=== PATIENT | female | born 1985 | race American Indian/Alaskan Native ===

== ENCOUNTER 2020-09-11 23:14 | Inpatient (IN) | payer MEDICAID ==
[2020-09-11] MEDS ORDERED: LACTATED RINGERS 1,000 ML IV ONE (23:51)
[2020-09-12] MEDS ORDERED: ePHEDrine SULFATE 50 MG/1 ML INJ IV PRN ×2 (00:12→02:39)
[2020-09-12] MEDS ORDERED: TERBUTALINE 1 MG/1 ML INJ SUB-Q PRN (00:12)
[2020-09-12] MEDS ORDERED: fentaNYL 100 MCG/2 ML INJ IV PRN (00:12)
[2020-09-12] MEDS ORDERED: MINERAL OIL 30 ML ORAL LIQD ONE (00:20)
[2020-09-12] MEDS ORDERED: OXYTOCIN DRIP 30,000 MILLIUNITS/500 ML BAG IV ONE (00:20)
--- NOTE | 2020-09-12 00:24 | History and Physical Report ---
History of Present Illness Date of examination: 09/12/20 Date of admission: 09/12/20 Chief complaint: Contractions/labor. History of present illness: 35 year old female presents to L&D in active labor. Patient received care at [facility] but records are not available. Patient states her EDC is 10/08/20. Problems during : chronic hypertension (on Labetalol), class 3 obesity, asthma, GBS unknown. labs to be requested from [facility] office when they open tomorrow morning. Past History Past Medical History: asthma, hypertension, other (obesity) Past Surgical History: no surgical history [facility] History: denies: chlamydia, gonorrhea, hepatitis B, hepatitis C, herpes, HIV, syphilis, trichomonas Family/Genetic History: hypertension Social history: lives with family, full code. denies: smoking, alcohol abuse, prescription drug abuse, IV drug use - Obstetrical History Expected Date of Delivery: 10/08/20 Actual Gestation: 36 Week(s) 2 Day(s) : 7 Para: 6 Hx # Term Pregnancies: 6 Number of Pregnancies: 0 Spontaneous Abortions: 0 Induced : 0 Number of Living Children: 6 Medications and Allergies Allergies Allergy/AdvReac Type Severity Reaction Status Date / Time Penicillins Allergy Anaphylaxis Verified 09/11/20 23:51 Active Meds: Active Medications Ephedrine Sulfate (Ephedrine Sulfate 50 Mg/1 Ml Inj) 10 mg IV Q2M PRN PRN Reason: Hypotension Fentanyl (Fentanyl 100 Mcg/2 Ml Inj) 100 mcg IV Q2H PRN PRN Reason: Pain,Severe (7-10) LABOR PAIN Lactated Ringer's (Lactated Ringers) 1,000 mls @ 999 mls/hr IV BOLUS ONE Stop: 09/12/20 00:51 Lactated Ringer's (Lactated Ringers) 1,000 mls @ 125 mls/hr IV DIRECT QUYEN Oxytocin/Sodium Chloride (Pitocin/Ns 30 Unit/500ml) 30 units in 500 mls @ 40 mls/hr IV TITR QUYEN; Protocol Vancomycin HCl (Vancomycin/Ns 1 Gm/250 Ml) 1 gm in 250 mls @ 167.007 mls/hr IV Q12H QUYEN; Protocol Lidocaine (Lidocaine (2%) 20 Mg/1 Ml Vial 20 Ml Mdv) 20 ml INFILTRATI ONCE ONE Stop: 09/12/20 00:13 Terbutaline Sulfate (Terbutaline 1 Mg/1 Ml Inj) 0.25 mg SUB-Q ONCE PRN PRN Reason: Hyperstimulation/Hypertonicity Review of Systems All systems: negative (contractions, had headache prior to arrival) - Vital Signs Vital signs: Vital Signs Pulse BP Pulse Ox 80 139/80 100 09/11/20 23:36 09/11/20 23:36 09/11/20 23:36 Temp Pulse Resp BP Pulse Ox 98.2 F 98 H 18 139/80 98 09/11/20 23:37 09/12/20 00:11 09/11/20 23:37 09/11/20 23:37 09/12/20 00:11 - Physical Exam Abdomen: Positive: normal appearance, soft. Negative: distention, tenderness, guarding, rigidity Genitourinary (Female): Positive: normal external genitalia, normal perenium. Negative: perineal/vulvar lesions Vagina: Positive: normal moisture Uterus: Positive: enlarged. Negative: tender Anus/Rectum: Positive: normal perianal skin Extremities: Positive: edema - Obstetrical FHR: category 1 Cervical Dilatation: 6 (small amount of bloody show noted; no active bleeding seen) Cervical Effacement Percentage: 80 station: -1 Uterine Contraction Pattern: Regular Uterine Contraction Intensity: Moderate Results All other labs normal. Assessment and Plan A: at 36 weeks, 2 days gestation. Active labor. Chronic hypertension with superimposed preeclampsia with severe features. GBS unknown. Grand mutipara. Asthma. Class 3 obesity. No records available. PCN allergy. P: Admit. EFM. Labetalol 200 mg PO for BP control. Hydralazine IV as needed for severe range BPs. Magnesium Sulfate for seizure prevention. GBS prophylaxis. Augmentation of labor to expedite . Anticipate vaginal . Consulted with Dr. Fournier re: this patient due to severe preeclampsia; will be co- managed with MD due to severe preeclampsia.
[2020-09-12] MEDS ORDERED: BETAMET ACET/BETAMET NA PH 6 MG/ML INJ 5 ML MDV IM SCH (00:25)
[2020-09-12] MEDS ORDERED: LIDOCAINE (2%) 20 MG/1 ML VIAL 20 ML MDV INFILTRATI ONE (00:42)
[2020-09-12] MEDS ORDERED: hydrALAZINE 20 MG/1 ML INJ IV PRN ×2 (00:45→04:26)
[2020-09-12] MEDS ORDERED: VANCOMYCIN/NS 1 GM/250 ML 1 GM/250 ML BAG IV SCH (01:00)
[2020-09-12] MEDS ORDERED: OXYTOCIN DRIP 30 UNITS/500 ML BAG IV SCH ×2 (01:00→02:00)
[2020-09-12] MEDS ORDERED: MAGNESIUM SULFATE 4 GM/100 ML BAG IV ONE (01:24)
[2020-09-12 01:41] LABS: Hematocrit 34.3 % (30.3-42.9); Hemoglobin 11.7 gm/dl (10.1-14.3); Mean Corpuscular HGB Conc 34 % (30-34); Mean Corpuscular Volume 93 fl (79-97); Platelet Count 263 K/mm3 (140-440); Red Cell Distribution Width 12.3 % (13.2-15.2)
[2020-09-12] MEDS ORDERED: hydrALAZINE 20 MG/1 ML INJ IV ONE (01:44)
[2020-09-12 01:56] LABS: Alanine Aminotransferase 6 units/L (7-56); Albumin 3.3 g/dL (3.9-5); Blood Urea Nitrogen 10 mg/dL (7-17); Calcium 8.7 mg/dL (8.4-10.2); Hemolysis Index 30
[2020-09-12] MEDS: MAGNESIUM SULFATE 40GM/1000ML 40 GM/1,000 ML BAG IV SCH ×2 (02:00→20:11)
[2020-09-12 02:11] LABS: BUN/Creatinine Ratio 20
--- NOTE | 2020-09-12 02:28 | Event Note ---
Date: 09/12/20 Patient has received IV Labetalol x2 and IV Hydralazine. BPs still significantly elevated. Called Dr. Fournier and informed him of elevated blood pressures despite interventions. Patient is awaiting epidural. Magnesium sulfate 2 gram/hour continues.
[2020-09-12] MEDS ORDERED: NALOXONE 2 MG/2 ML INJ IV PRN (02:39)
--- NOTE | 2020-09-12 02:39 | Anesthesia Consultation ---
Anesthesia Consult and Med Hx Date of service: 09/12/20 - Airway Anesthetic Teeth Evaluation: Poor ROM Head & Neck: Adequate Mental/Hyoid Distance: Adequate Mallampati Class: Class III Intubation Access Assessment: Possibly Difficult - Pulmonary Exam CTA: Yes - Cardiac Exam Cardiac Exam: RRR - Pre-Operative Health Status ASA Pre-Surgery Classification: ASA3 - Pulmonary Hx Smoking: No Hx Asthma: Yes (last attrack > 10 years) Hx Respiratory Symptoms: No SOB: No COPD: No Home Oxygen Therapy: No Hx Pneumonia: No Hx Sleep Apnea: No - Cardiovascular System Hx Hypertension: Yes (2019 & current) Hx Coronary Artery Disease: No Hx Heart Attack/AMI: No Hx Angina: No Hx Percutaneous Transluminal Coronary Angioplasty (PTCA): No Hx Cardia Arrhythmia: No Hx Pacemaker: No Hx Internal Defibrillator: No Hx Valvular Heart Disease: No Hx Heart Murmur: No Hx Peripheral Vascular Disease: No - Central Nervous System Hx Neuromuscular Disorder: No Hx Seizures: No CVA: No Hx Back Pain: No Hx Psychiatric Problems: No - Gastrointestinal Hx Ulcer: No Hx Gastroesophageal Reflux Disease: Yes - Endocrine Hx Renal Disease: No Hx End Stage Renal Disease: No Hx Cirrhosis: No Hx Liver Disease: No Hx Insulin Dependent Diabetes: No Hx Non-Insulin Dependent Diabetes: No Hx Thyroid Disease: No Hx Hypothyroidism: No Hx Hyperthyroidism: No - Hematic Hx Anemia: No Hx Sickle Cell Disease: No - Other Systems Hx Alcohol Use: No Hx Substance Use: No Hx Cancer: No Hx Obesity: Yes
--- NOTE | 2020-09-12 02:39 | Progress Note ---
Labor Epidural - Labor Epidural Start Time: 03:00 Stop Time: 03:00 Performed by:: BENIGNO MCKEON Procedure: Patient is requesting a laboring epidural for laboring pain. Patient IDed, H&P reviewed, all questions and concerns were answered, and consent was signed. CNM in the room for vaginal exam. Patient is compleat and prefer not to have an epidural at this time
[2020-09-12] MEDS ORDERED: fentaNYL-BUPIV 2 MCG/ML-0.125% 200 MCG/100 ML BAG EPIDURAL SCH (03:00)
[2020-09-12 03:32] LABS: Bacteria,Urine 1+ /HPF (Negative); Bilirubin,Urine NEG (Negative); Blood,Urine MOD (Negative); Color,Urine Yellow (Yellow); Mucus,Urine 1+ /HPF; Protein,Urine <15 mg/dL mg/dL (Negative); Urobilinogen,Urine < 2.0 mg/dL (<2.0)
[2020-09-12] MEDS ORDERED: LANOLIN/ZINC/DIMETHICONE (LANSINOH) 7 GM TP PRN (03:43)
[2020-09-12] MEDS ORDERED: WITCH HAZEL/ GLYCERIN PAD TP PRN (03:43)
[2020-09-12] MEDS ORDERED: HYDROcodone/ACETAMINOPHEN 5-325 MG TAB PO PRN (03:53)
--- NOTE | 2020-09-12 04:12 | Procedure Note ---
OB Delivery Note - Delivery Date of Delivery: 09/12/20 Surgeon: JENIFFER VILLAFUERTE Estimated blood loss: 200cc - Vaginal Delivery presentation: vertex Delivery position: OA Delivery induction: none Delivery monitor: external FHT, external uterine Route of delivery: Delivery placenta: spontaneous Delivery cord: 3 umbilical vessels Episiotomy: none Delivery laceration: none - Section Narrative: Spontaneous vaginal delivery at 02:56 of liveborn male weighing 5 lbs. 12 oz. over intact perineum with apars of 2/8. was atraumatic. Tight nuchal cord times 1, double clamped and cut . Baby taken to radiant warmer for suctioning and stimulation. Spontaneous cry and respirations. Sponaneous delivery of intact placenta and membranes. Pitocin to IV fluids after delivery of placenta. EBL 200 cc. Fundus firm and midline. No lacerations noted. Vaginal sweep negative. Mother and baby stable.
[2020-09-12] MEDS: ACETAMINOPHEN 325 MG TAB PO PRN ×2 (04:15→20:11)
--- NOTE | 2020-09-12 04:45 | Event Note ---
Date: 09/12/20 Dr. Fournier came and saw patient and states he agrees with medications patient is receiving. Patient is receiving Labetalol 300 mg po BID. She also has received IV hydralazine and Labetalol. BPs came down a little just after delivery but now going back up again. Hospitalist consult has been ordered. Called and spoke with hospitalist and explained the situation and he states he will come to see patient.
[2020-09-12] MEDS: LACTATED RINGERS 1,000 ML IV SCH ×2 (05:46→18:55)
--- NOTE | 2020-09-12 08:49 | Consultation ---
History of Present Illness - Reason for Consult Consult date: 09/12/20 - History of Present Illness 35 year old female with a medical hisgtory of HTN, Asthma who presented to the hospital in labor. She takes hydralazine usually. Her BP reportedly controlled during . Here her BP was elevated and it did not respond appropriately to IV medications. Hospitalist priya was consulted for uncontrolled HTN Patient seen this AM. Complains of headache. Denies chest pain or palpitations. Past History Past Medical History: hypertension, other (Asthma) Social history: lives with family, full code. denies: smoking, alcohol abuse, prescription drug abuse, IV drug use Medications and Allergies Allergies Allergy/AdvReac Type Severity Reaction Status Date / Time Penicillins Allergy Anaphylaxis Verified 09/11/20 23:51 Active Meds: Active Medications Acetaminophen (Acetaminophen 325 Mg Tab) 650 mg PO Q4H PRN PRN Reason: Pain MILD(1-3)/Fever >100.5/FOY Last Admin: 09/12/20 04:15 Dose: 650 mg Documented by: Hydrocodone Bitart/Acetaminophen (Hydrocodone/Acetaminophen 5-325 Mg Tab) 1 each PO Q6H PRN PRN Reason: Pain, Moderate (4-6) Betamethasone Acet/Betameth SodPhos (Betamet Acet/Betamet Na Ph 6 Mg/Ml Inj 5 Ml Mdv) 12 mg IM Q24H QUYEN Stop: 09/13/20 00:26 Ephedrine Sulfate (Ephedrine Sulfate 50 Mg/1 Ml Inj) 10 mg IV Q2M PRN PRN Reason: Hypotension Fentanyl (Fentanyl 100 Mcg/2 Ml Inj) 100 mcg IV Q2H PRN PRN Reason: Pain,Severe (7-10) LABOR PAIN Last Admin: 09/12/20 04:52 Dose: 100 mcg Documented by: Hydralazine HCl (Hydralazine 20 Mg/1 Ml Inj) 5 mg IV Q30MIN PRN PRN Reason: Hypertension Last Admin: 09/12/20 01:08 Dose: 5 mg Documented by: Hydralazine HCl (Hydralazine 20 Mg/1 Ml Inj) 10 mg IV Q30MIN PRN PRN Reason: Hypertension Last Admin: 09/12/20 04:33 Dose: 10 mg Documented by: Lactated Ringer's (Lactated Ringers) 1,000 mls @ 125 mls/hr IV DIRECT QUYEN Last Admin: 09/12/20 05:46 Dose: 75 mls/hr Documented by: Oxytocin/Sodium Chloride (Pitocin/Ns 30 Unit/500ml) 30 units in 500 mls @ 40 mls/hr IV TITR QUYEN; Protocol Vancomycin HCl (Vancomycin/Ns 1 Gm/250 Ml) 1 gm in 250 mls @ 167.007 mls/hr IV Q12H QUYEN; Protocol Last Admin: 09/12/20 01:20 Dose: 167.007 mls/hr Documented by: Magnesium Sulfate (Magnesium Sulfate 40gm/1000ml) 40 gm in 1,000 mls @ 50 mls/hr IV DIRECT QUYEN Last Admin: 09/12/20 02:00 Dose: 2 gm/hr, 50 mls/hr Documented by: Oxytocin/Sodium Chloride (Pitocin/Ns 30 Unit/500ml) 30 units in 500 mls @ 2 mls/hr IV TITR QUYEN; Protocol Fentanyl/Bupivacaine/Sodium Chlor (Fentanyl-Bupiv 2 Mcg/Ml-0.125%) 200 mcg in 100 mls @ 12 mls/hr EPIDURAL TITR QUYEN; Protocol Labetalol HCl (Labetalol 200 Mg Tab) 200 mg PO BID QUYEN Last Admin: 09/12/20 04:05 Dose: 200 mg Documented by: Multi-Ingredient Ointment (Lanolin/Zinc/Dimethicone (Lansinoh) 7 Gm) 1 applic TP PRN PRN PRN Reason: Sore Nipples Naloxone HCl (Naloxone 2 Mg/2 Ml Inj) 0.2 mg IV Q5M PRN PRN Reason: Respiratory sedation Sodium Chloride (Sodium Chloride 0.9% 10 Ml Flush Syringe) 10 ml IV PRN NR Stop: 09/13/20 03:59 Terbutaline Sulfate (Terbutaline 1 Mg/1 Ml Inj) 0.25 mg SUB-Q ONCE PRN PRN Reason: Hyperstimulation/Hypertonicity Witch Alba/Glycerin (Witch Alba/ Glycerin Pad) 1 each TP PRN PRN PRN Reason: Hemorrhoid/cleansing/soothing Exam - Physical Exam Narrative exam: VITAL SIGNS: Reviewed. GENERAL: Awake HEAD: No signs of head trauma. EYES: Pupils are equal. Extraocular motions intact. MOUTH: Oropharynx is normal. NECK: No adenopathy, no JVD. CHEST: Chest with diminished breath sounds bilaterally. No wheezes, rales, or rhonchi. CARDIAC: normal S1 and S2, without murmurs, gallops, or rubs. ABDOMEN: Soft, non tender and non distended. No rebound or guarding, and no masses palpated. Bowel Sounds normal. MUSCULOSKELETAL: No edema NEUROLOGIC EXAM: Alert and oriented x3. No focal neurologic deficits SKIN: No obvious lesions - Constitutional Vitals: Temp Pulse Resp BP Pulse Ox 97.8 F 72 18 129/73 98 09/12/20 06:00 09/12/20 08:46 09/12/20 04:52 09/12/20 08:38 09/12/20 08:46 Results - Labs CBC & Chem 7: 09/12/20 00:55 09/12/20 00:55 Labs: Abnormal lab results 09/12/20 09/12/20 09/12/20 Range/Units 00:55 00:55 00:55 WBC 12.7 H (4.5-11.0) K/mm3 RDW 12.3 L (13.2-15.2) % Sodium 134 L (137-145) mmol/L Carbon Dioxide 21 L (22-30) mmol/L Creatinine 0.5 L (0.6-1.2) mg/dL ALT 6 L (7-56) units/L Lactate Dehydrogenase 240 H (91-180) units/L Albumin 3.3 L (3.9-5) g/dL Assessment and Plan #Uncontrolled hypertension Continue labetalol 200 mg twice daily Add hydralazine 25 mg every 8 hours Monitor blood pressure closely #Asthma Continue bronmchodilators Thank you for the consult
[2020-09-12] MEDS ORDERED: hydrALAZINE 25 MG TAB PO SCH (10:00)
[2020-09-12] MEDS: hydrALAZINE 25 MG TAB PO SCH ×2 (14:47→22:14)
[2020-09-12 15:00] LABS: Hematocrit 31.6 % (30.3-42.9); Hemoglobin 10.4 gm/dl (10.1-14.3)
[2020-09-13] MEDS: ACETAMINOPHEN 325 MG TAB PO PRN ×2 (04:41→22:30)
[2020-09-13] MEDS: hydrALAZINE 25 MG TAB PO SCH ×4 (05:59→22:34)
[2020-09-13] MEDS ORDERED: ALBUTEROL 2.5 MG/3 ML NEBU IH ONE (08:18)
[2020-09-13] MEDS ORDERED: ALBUTEROL 2.5 MG/3 ML NEBU IH PRN (08:26)
--- NOTE | 2020-09-13 08:27 | Progress Note ---
Assessment and Plan Assessment and plan: #Uncontrolled hypertension Labetalol 400mg BID Hydralazine 25 mg q8hr Nifedipine 60mg q12hr Monitor blood pressure closely #Mild asthma exacerbation Prednisone 40mg x5days Continue bronchodilators Pulmonology follow up at discharge Thank you for the consult History Interval history: Patient seen and examined at bedside. Has some wheezing. Hospitalist Physical - Physical exam Narrative exam: VITAL SIGNS: Reviewed. GENERAL: Awake HEAD: No signs of head trauma. EYES: Pupils are equal. Extraocular motions intact. MOUTH: Oropharynx is normal. NECK: No adenopathy, no JVD. CHEST: Slight wheezes CARDIAC: normal S1 and S2, without murmurs, gallops, or rubs. ABDOMEN: Soft, non tender and non distended. No rebound or guarding, and no masses palpated. Bowel Sounds normal. MUSCULOSKELETAL: No edema NEUROLOGIC EXAM: Alert and oriented x3. No focal neurologic deficits SKIN: No obvious lesions - Constitutional Vitals: Temp Pulse Resp BP Pulse Ox 98.4 F 76 18 165/96 100 09/13/20 04:24 09/13/20 05:59 09/13/20 05:41 09/13/20 05:59 09/13/20 04:24 Results - Labs CBC & Chem 7: 09/12/20 14:21 09/12/20 00:55 Labs: Laboratory Last Values WBC 12.7 K/mm3 (4.5-11.0) H 09/12/20 00:55 RBC 3.70 M/mm3 (3.65-5.03) 09/12/20 00:55 Hgb 10.4 gm/dl (10.1-14.3) 09/12/20 14:21 Hct 31.6 % (30.3-42.9) 09/12/20 14:21 MCV 93 fl (79-97) 09/12/20 00:55 MCH 32 pg (28-32) 09/12/20 00:55 MCHC 34 % (30-34) 09/12/20 00:55 RDW 12.3 % (13.2-15.2) L 09/12/20 00:55 Plt Count 263 K/mm3 (140-440) 09/12/20 00:55 Sodium 134 mmol/L (137-145) L 09/12/20 00:55 Potassium 4.0 mmol/L (3.6-5.0) 09/12/20 00:55 Chloride 101.6 mmol/L (98-107) 09/12/20 00:55 Carbon Dioxide 21 mmol/L (22-30) L 09/12/20 00:55 Anion Gap 15 mmol/L 09/12/20 00:55 BUN 10 mg/dL (7-17) 09/12/20 00:55 Creatinine 0.5 mg/dL (0.6-1.2) L 09/12/20 00:55 Estimated GFR > 60 ml/min 09/12/20 00:55 BUN/Creatinine Ratio 20 % 09/12/20 00:55 Glucose 97 mg/dL (65-100) 09/12/20 00:55 Uric Acid 3.5 mg/dL (3.5-7.6) 09/12/20 00:55 Calcium 8.7 mg/dL (8.4-10.2) 09/12/20 00:55 Magnesium 4.50 mg/dL (1.7-2.3) H 09/13/20 00:37 Total Bilirubin < 0.20 mg/dL (0.1-1.2) 09/12/20 00:55 AST 18 units/L (5-40) 09/12/20 00:55 ALT 6 units/L (7-56) L 09/12/20 00:55 Alkaline Phosphatase 107 units/L (35-129) 09/12/20 00:55 Lactate Dehydrogenase 240 units/L (91-180) H 09/12/20 00:55 Total Protein 6.5 g/dL (6.3-8.2) 09/12/20 00:55 Albumin 3.3 g/dL (3.9-5) L 09/12/20 00:55 Albumin/Globulin Ratio 1.0 % 09/12/20 00:55 Urine Color Yellow (Yellow) 09/12/20 01:38 Urine Turbidity Clear (Clear) 09/12/20 01:38 Urine pH 6.0 (5.0-7.0) 09/12/20 01:38 Ur Specific [place] 1.020 (1.003-1.030) 09/12/20 01:38 Urine Protein <15 mg/dl mg/dL (Negative) 09/12/20 01:38 Urine Glucose (UA) Neg mg/dL (Negative) 09/12/20 01:38 Urine Ketones Neg mg/dL (Negative) 09/12/20 01:38 Urine Blood Mod (Negative) 09/12/20 01:38 Urine Nitrite Neg (Negative) 09/12/20 01:38 Urine Bilirubin Neg (Negative) 09/12/20 01:38 Urine Urobilinogen < 2.0 mg/dL (<2.0) 09/12/20 01:38 Ur Leukocyte Esterase Neg (Negative) 09/12/20 01:38 Urine WBC (Auto) 2.0 /HPF (0.0-6.0) 09/12/20 01:38 Urine RBC (Auto) 3.0 /HPF (0.0-6.0) 09/12/20 01:38 U Epithel Cells (Auto) 2.0 /HPF (0-13.0) 09/12/20 01:38 Urine Bacteria (Auto) 1+ /HPF (Negative) 09/12/20 01:38 Urine Mucus 1+ /HPF 09/12/20 01:38 Blood Type B POSITIVE 09/12/20 00:55 Antibody Screen Negative 09/12/20 00:55 Active Medications - Current Medications Current Medications: Generic Name Dose Route Start Last Admin Trade Name Freq PRN Reason Stop Dose Admin Acetaminophen 650 mg 09/12/20 03:43 09/13/20 04:41 Acetaminophen 325 Mg Tab PO 650 mg Q4H PRN Administration Pain MILD(1-3)/Fever >100.5/FOY Hydrocodone Bitart/Acetaminophen 1 each 09/12/20 03:53 Hydrocodone/Acetaminophen 5-325 Mg Tab PO Q6H PRN Pain, Moderate (4-6) Ephedrine Sulfate 10 mg 09/12/20 00:12 Ephedrine Sulfate 50 Mg/1 Ml Inj IV Q2M PRN Hypotension Fentanyl 100 mcg 09/12/20 00:12 09/12/20 04:52 Fentanyl 100 Mcg/2 Ml Inj IV 100 mcg Q2H PRN Administration Pain,Severe (7-10) LABOR PAIN Hydralazine HCl 5 mg 09/12/20 00:45 09/12/20 01:08 Hydralazine 20 Mg/1 Ml Inj IV 5 mg Q30MIN PRN Administration Hypertension Hydralazine HCl 10 mg 09/12/20 04:26 09/12/20 04:33 Hydralazine 20 Mg/1 Ml Inj IV 10 mg Q30MIN PRN Administration Hypertension Hydralazine HCl 25 mg 09/13/20 08:00 Hydralazine 25 Mg Tab PO Q8HR QUYEN Lactated Ringer's 1,000 mls @ 125 mls/hr 09/12/20 00:15 09/13/20 03:36 Lactated Ringers IV 0 mls/hr DIRECT QUYEN Infusion Oxytocin/Sodium Chloride 30 units in 500 mls @ 40 mls/hr 09/12/20 01:00 Pitocin/Ns 30 Unit/500ml IV TITR [facility] Protocol Magnesium Sulfate 40 gm in 1,000 mls @ 50 mls/hr 09/12/20 02:00 09/13/20 03:36 Magnesium Sulfate 40gm/1000ml IV 0 gm/hr DIRECT QUYEN 0 mls/hr Infusion 2 GM/HR Oxytocin/Sodium Chloride 30 units in 500 mls @ 2 mls/hr 09/12/20 02:00 Pitocin/Ns 30 Unit/500ml IV TITR [facility] Protocol Labetalol HCl 400 mg 09/13/20 08:00 Labetalol 200 Mg Tab PO BID [facility] Multi-Ingredient Ointment 1 applic 09/12/20 03:43 Lanolin/Zinc/Dimethicone (Lansinoh) 7 Gm TP PRN PRN Sore Nipples Naloxone HCl 0.2 mg 09/12/20 02:39 Naloxone 2 Mg/2 Ml Inj IV Q5M PRN Respiratory sedation Nifedipine 60 mg 09/13/20 08:00 Nifedipine Xl 60 Mg Tab PO Q12HR [facility] Witch Alba/Glycerin 1 each 09/12/20 03:43 Witch [place]/ Glycerin Pad TP PRN PRN Hemorrhoid/cleansing/soothing
[2020-09-13] MEDS ORDERED: NIFEdipine XL 60 MG TAB PO SCH (10:00)
--- NOTE | 2020-09-13 10:28 | Progress Note ---
Assessment and Plan A: day 1 S/P . Hypertension. Severe Preeclampsia. Asthma. Class 3 obesity. Anemia. P: Hospitalist is also following patient. Continue BP meds and asthma meds as ordered by hospitalist. Oral iron supplementation for anemia. Subjective - Subjective Date of service: 09/13/20 Principal diagnosis: day 1 S/P ; severe preeclampsia Interval history: Patient was seen by hospitalist yesterday and again this morning due to uncontrolled hypertension and asthma exacerbation. For hypertension, patient is currently on Labetalol 400 mg po BID, Procardia 60 mg po every 12 hours, and Hydralazine 25 mg po every 8 hours. For asthma, patient is currently receiving albuterol and prednisone. Patient denies headache, chest pain, cough, or leg pain. Patient reports moderate to light lochia. Patient reports: appetite normal, voiding normally, pain well controlled, no nauseated : doing well Objective - Vital Signs Latest vital signs: Vital Signs Temp Pulse Pulse Resp Resp BP Pulse Ox 09/13/20 08:26 97.1 F L 74 18 149/98 100 09/13/20 08:15 90 18 09/13/20 05:59 76 165/96 09/13/20 05:41 18 09/13/20 04:41 18 09/13/20 04:24 98.4 F 76 18 165/96 100 09/13/20 03:21 79 97 09/13/20 03:16 77 99 09/13/20 03:11 89 98 09/13/20 03:08 77 142/95 09/13/20 03:06 81 97 09/13/20 03:01 75 98 09/13/20 02:56 72 98 09/13/20 02:51 76 98 09/13/20 02:46 73 98 09/13/20 02:41 71 98 09/13/20 02:38 71 142/82 09/13/20 02:36 70 98 09/13/20 02:31 72 98 09/13/20 02:26 75 100 09/13/20 02:21 87 98 09/13/20 02:16 87 99 09/13/20 02:11 81 99 09/13/20 02:08 89 141/79 92 09/13/20 02:06 92 H 99 09/13/20 02:01 78 98 09/13/20 01:56 83 96 05 01:51 88 97 09/13/20 01:46 80 98 05 01:41 108 H 98 09/13/20 01:38 78 155/86 93 05 01:36 78 97 09/13/20 01:31 78 97 09/13/20 01:26 74 97 05 01:21 71 97 09/13/20 01:16 73 97 09/13/20 01:11 79 98 05 01:08 74 143/89 09/13/20 01:06 71 98 09/13/20 01:01 75 98 09/13/20 00:56 73 98 05 00:51 76 100 09/13/20 00:46 75 97 09/13/20 00:41 82 98 09/13/20 00:38 70 141/92 09/13/20 00:36 70 99 09/13/20 00:31 78 99 09/13/20 00:26 82 98 09/13/20 00:21 79 99 05 00:16 73 99 09/13/20 00:11 76 99 09/13/20 00:08 97.9 F 69 19 142/91 09/13/20 00:06 75 99 09/13/20 00:01 89 99 09/12/20 23:56 87 98 09/12/20 23:51 78 98 09/12/20 23:46 84 99 09/12/20 23:41 87 99 09/12/20 23:38 79 157/85 94 05 23:36 79 96 05 23:31 81 96 05 23:26 79 98 05 23:23 84 94 05 23:21 80 96 05 23:16 80 98 05 23:11 78 97 05 23:08 75 138/84 05 23:06 87 97 05 23:01 74 98 05 22:56 80 97 05 22:51 92 H 99 05 22:46 82 99 05 22:41 74 98 05 22:38 75 144/84 05 22:36 78 97 05 22:31 83 97 05 22:26 85 98 05 22:21 75 100 05 22:16 79 100 05 22:11 81 99 05 22:08 77 138/85 05 22:06 80 100 05 22:01 77 98 05 21:56 89 99 05 21:51 89 99 05 21:46 76 99 05 21:41 85 100 09/12/20 21:38 77 172/92 05 21:36 82 99 05 21:31 87 100 09/12/20 21:26 77 99 05 21:21 82 97 09/12/20 21:16 85 98 09/12/20 21:11 76 98 05 21:08 74 149/85 05 21:06 81 98 05 21:01 73 98 05 20:56 85 97 09/12/20 20:51 72 99 05 20:46 81 98 05 20:41 74 98 05 20:38 78 164/105 09/12/20 20:36 85 98 05 20:31 83 99 09/12/20 20:26 78 98 05 20:21 71 97 05 20:18 89 91 05 20:16 78 97 05 20:13 73 155/90 05 20:11 82 97 05 20:06 76 98 05 20:01 82 98 05 19:56 74 98 05 19:51 78 97 05 19:46 82 147/91 97 05 19:45 98.3 F 20 09/12/20 19:41 81 97 05 19:38 78 148/94 05 19:36 84 98 05 19:31 89 99 05 19:26 82 99 05 19:21 77 98 05 19:16 78 98 05 19:11 76 97 05 19:08 70 142/82 05 19:06 78 97 05 19:01 85 98 05 18:56 75 99 05 18:51 75 98 05 18:46 82 100 05 18:41 74 98 05 18:38 79 139/81 05 18:36 78 100 05 18:31 77 98 05 18:26 74 98 05 18:21 79 99 05 18:16 82 98 05 18:11 87 98 05 18:08 87 165/86 05 18:06 88 99 05 18:01 83 97 09/12/20 17:56 89 100 05 17:51 77 99 05 17:46 83 99 09/12/20 17:41 81 100 05 17:38 72 136/81 05 17:36 72 99 05 17:31 74 99 05 17:26 76 98 05 17:21 78 99 09/12/20 17:16 82 98 05 17:11 86 99 09/12/20 17:08 81 114/63 05 17:06 81 98 05 17:01 85 98 05 16:56 85 98 05 16:51 75 99 05 16:46 80 99 05 16:41 77 99 05 16:38 74 132/76 94 05 16:36 92 H 98 05 16:31 74 98 05 16:26 77 99 05 16:21 86 99 05 16:16 84 99 05 16:11 86 99 05 16:08 85 131/74 05 16:06 88 97 05 16:01 84 99 05 16:00 97.8 F 18 98 05 15:56 86 97 05 15:51 82 97 05 15:46 96 H 98 05 15:41 79 99 05 15:38 74 127/72 05 15:36 83 99 05 15:31 84 97 05 15:26 74 97 05 15:21 82 98 05 15:16 82 97 05 15:11 81 98 05 15:08 77 134/79 05 15:06 79 98 05 15:01 77 99 05 14:56 81 99 05 14:51 82 98 05 14:47 79 144/92 05 14:46 86 98 05 14:41 82 100 05 14:38 79 144/92 05 14:36 72 100 05 14:31 78 100 05 14:26 77 100 05 14:21 71 99 05 14:16 67 100 05 14:11 72 99 05 14:08 69 136/79 05 14:06 70 100 05 14:01 69 99 05 13:56 68 100 05 13:51 71 99 05 13:46 68 97 05 13:41 70 97 05 13:38 66 127/75 05 13:36 67 100 05 13:31 71 99 05 13:26 78 99 05 13:21 71 98 05 13:16 74 98 05 13:11 74 96 05 13:08 73 122/75 05 13:06 79 98 05 13:01 82 98 05 12:56 84 98 05 12:51 77 96 05 12:46 76 98 05 12:41 76 97 05 12:38 83 133/84 05 12:36 88 95 09/12/20 12:31 75 97 09/12/20 12:30 97.8 F 18 98 09/12/20 12:26 76 99 09/12/20 12:21 80 98 09/12/20 12:16 75 96 09/12/20 12:11 75 96 09/12/20 12:08 74 133/69 09/12/20 12:06 74 97 09/12/20 12:01 80 96 09/12/20 11:56 77 95 09/12/20 11:51 84 98 09/12/20 11:46 79 98 09/12/20 11:41 83 99 09/12/20 11:38 77 131/73 09/12/20 11:36 79 97 09/12/20 11:31 86 98 09/12/20 11:26 78 98 09/12/20 11:21 86 98 09/12/20 11:16 80 100 09/12/20 11:11 87 99 09/12/20 11:08 89 128/74 93 09/12/20 11:06 87 99 09/12/20 11:01 82 97 09/12/20 10:56 77 97 09/12/20 10:51 83 97 09/12/20 10:46 83 98 09/12/20 10:41 78 98 09/12/20 10:38 81 128/75 09/12/20 10:36 80 96 09/12/20 10:31 80 97 Intake and Output 09/12/20 09/13/20 09/13/20 23:59 07:59 15:59 Intake Total 2711.417 1972.083 Output Total 1350 800 Balance 4975.580 8340.083 Intake: IV 1044.314 4506.083 Lactated Ringers 1,000 ml 986.25 651.25 @ 125 mls/hr IV DIRECT QUYEN Rx#:[id number] MAGNESIUM SULFATE 40GM/ 909.167 370.833 1000ML 40 gm In 1,000 ml @ 2 GM/HR 50 mls/hr IV DIRECT QUYEN Rx#:[id number] Oral 816 950 Output: Urine 1350 800 Indwelling Catheter 1350 500 Void 300 Other: Total, Intake Amount 236 240 Total, Output Amount 500 300 - Exam Cardiovascular: Present: Regular rate Lungs: Present: Clear to auscultation Abdomen: Present: normal appearance, soft. Absent: guarding, rigidity Uterus: Present: normal, firm, fundal height below umbilicus. Absent: tenderness Extremities: Present: edema (pedal edema bilaterally) - Labs Labs: Abnormal lab results 09/12/20 09/12/20 09/13/20 Range/Units 14:21 19:49 00:37 Magnesium 4.30 H 4.40 H 4.50 H (1.7-2.3) mg/dL
[2020-09-13] MEDS: FERROUS SULFATE 325 MG TAB PO SCH ×2 (10:45→22:28)
[2020-09-13] MEDS: NIFEdipine XL 60 MG TAB PO SCH ×2 (10:50→22:33)
[2020-09-13] MEDS: predniSONE 20 MG TAB PO SCH (11:38)
[2020-09-13 16:50] LABS: Hepatitis C Virus Antibody Non-Reactive (NonReactive)
[2020-09-14] MEDS: hydrALAZINE 25 MG TAB PO SCH (06:08)
[2020-09-14] MEDS: ACETAMINOPHEN 325 MG TAB PO PRN ×2 (06:08→09:43)
[2020-09-14] MEDS: FERROUS SULFATE 325 MG TAB PO SCH (09:39)
[2020-09-14] MEDS: predniSONE 20 MG TAB PO SCH (09:39)
[2020-09-14] MEDS: NIFEdipine XL 60 MG TAB PO SCH (09:40)
--- NOTE | 2020-09-14 13:41 | Progress Note ---
Assessment and Plan A: PP Day #2 CHTN with superimposed Preeclampsia Asthma Morbid Obesity P: Follow Routine Orders Continue Labetalol 400mg PO BID, Hydralazine 25mg q 8 hours, and Nifedipine 600mg PO q 12hours Continue Prednisone 40mg x 5 days Continue Bronchodilators Patient strongly desires discharge home today Consulted Dr. Grey; Patient may be discharged today All the above medications: LAbetalol, Prednisone, Hydralazine, and Nifedipine were called in to the Pharmacy ([facility]) RTO in 1 Week Subjective - Subjective Date of service: 09/14/20 Principal diagnosis: day 1 S/P ; severe preeclampsia Patient reports: appetite normal, voiding normally, pain well controlled, flatus, bowel movement, ambulating normally, other (Denies HAs, visual changes, epigastic pain, N&V) : doing well, bottle feeding Objective - Vital Signs Latest vital signs: Vital Signs Temp Pulse Resp BP BP Pulse Ox 09/14/20 12:08 98.4 F 81 18 122/66 100 09/14/20 09:43 18 09/14/20 09:42 91 H 131/71 09/14/20 08:53 98.4 F 78 18 131/71 98 09/14/20 06:08 80 14 138/79 09/14/20 05:41 99.0 F 77 18 138/79 99 09/14/20 02:14 98.4 F 79 18 122/63 100 09/13/20 22:34 85 140/67 09/13/20 22:33 85 140/67 09/13/20 22:30 14 09/13/20 20:50 98.1 F 92 H 18 174/98 95 09/13/20 18:10 171/93 09/13/20 16:40 98.7 F 82 20 167/95 92 Intake and Output 09/13/20 09/14/20 09/14/20 22:59 06:59 14:59 Intake Total 1080 240 Balance 1080 240 Intake: Oral 240 Intake, Free Water 840 240 Other: Total, Intake Amount 240 # Voids Indwelling Catheter 2 Void 1 - Exam Breasts: Present: normal Cardiovascular: Present: Regular rate Lungs: Present: Clear to auscultation, Normal air movement Abdomen: Present: normal appearance, soft, normal bowel sounds Uterus: Present: normal, firm, fundal height below umbilicus Extremities: Present: normal - Labs Labs: Abnormal lab results 09/13/20 Range/Units 15:56 Magnesium 2.50 H (1.7-2.3) mg/dL
--- NOTE | 2020-09-14 13:42 | Discharge Summary ---
Providers - Providers Date of Admission: 09/12/20 00:12 Date of discharge: 09/14/20 Attending physician: DEANGELO RBUCE MD 09/12/20 03:24 Consult to Physician [CONS] Urgent Comment: Consulting Provider: MOON RUIZ Physician Instructions: Reason For Exam: uncontrolled hypertension; severe preeclampsia Primary care physician: DEANGELO BRUCE MD Hospitalization Reason for admission: active labor Delivery: Episiotomy: none Laceration: none Other procedures: none complications: none Discharge diagnosis: delivery [place] baby: male Condition at discharge: Good Disposition: DC-01 TO HOME OR SELFCARE Plan - Provider Discharge Summary Activity: routine, no sex for 6 weeks, no heavy lifting 4 weeks Diet: routine Instructions: routine Additional instructions: [] Smoking cessation referral if applicable(refer to patient education folder for contact #) [] Refer to [facility]'s [facility] Booklet Call your doctor immediately for: * Fever > 100.5 * Heavy vaginal bleeding ( >1 pad per hour) * Severe persistent headache * Shortness of breath * Reddened, hot, painful area to leg or breast * Drainage or odor from incision. * Keep incision clean and dry at all times and follow doctor's instructions regarding bathing/showering - Follow up plan Follow up: DEANGELO BRUCE MD [Primary Care Provider] - 7 Days
--- NOTE | 2020-09-14 14:04 | Event Note ---
Date: 09/14/20 BP stable, No objections to discharge
[2020-09-14 14:21] VITALS: BP 134/83
== END 2020-09-14 15:25 | disposition home or self-care (01) | DRG 774 ==
LOC: TRG 23:14 → APU 23:17 → OB 23:17 → TRG 09-12 00:12 → LD 09-12 00:12 → OB 09-13 04:09
PROC: 10E0XZZ Delivery of Products of Conception, External Approach (ICD-10-PCS; principal; 2020-09-12)
DX: O99.52 Diseases of the respiratory system complicating childbirth (principal); O10.92 Unspecified pre-existing hypertension complicating childbirth; E66.01 Morbid (severe) obesity due to excess calories; Z37.0 Single live birth; Z3A.36 36 weeks gestation of pregnancy; O11.4 Pre-existing hypertension with pre-eclampsia, complicating childbirth; J45.901 Unspecified asthma with (acute) exacerbation; O99.214 Obesity complicating childbirth; Z82.49 Family history of ischemic heart disease and other diseases of the circulatory system; Z88.0 Allergy status to penicillin; K21.9 Gastro-esophageal reflux disease without esophagitis; Z37.9 Outcome of delivery, unspecified; O90.81 Anemia of the puerperium; D64.9 Anemia, unspecified
CPT/HCPCS: 36415; 59025; 80053; 81001; 83615; 83735; 84550; 85014; 85018; 85027; 86592; 86706; 86762; 86803; 86850; 86900; 86901; 87806; 88307; 94640; 96360; 96365; 96369; 96374; 96375; 96376; G0378; A6250; J0360; J2590; J3010; J3370; J3475; J7120; J7512